=== PATIENT | male | born 1980 | race Caucasian/White ===

== ENCOUNTER 2020-01-10 07:11 | Day surgery (SDC) | payer BC ==
[~2020-01-10] VITALS: Ht 180.3 cm; Wt 86.2 kg
--- NOTE | ~2020-01-10 | OP ---
PATIENT NAME: OPAL DOUGLAS MEDICAL RECORD: [id number] :82 LOCATION:D.OPS ADMISSION DATE: SURGEON: FABRIZIO RAMIREZ MD DATE OF OPERATION: 01/10/2020 PREOPERATIVE DIAGNOSIS: Medial meniscus tear of the left knee. POSTOPERATIVE DIAGNOSIS: Medial meniscus tear of the left knee. PROCEDURE: Arthroscopic partial medial meniscectomy. SURGEON: Fabrizio Ramirez MD ANESTHESIA: General. INTRAOPERATIVE COMPLICATIONS: None. SUMMARY OF PATHOLOGIC FINDINGS: The patient had a complex tear of the posterior horn of the medial meniscus consistent with the preoperative MRIs and examination. OPERATIVE SUMMARY IN DETAIL: After obtaining the appropriate preoperative orthopedic surgery consent as well as anesthetic consultation, evaluation and clearance, the patient was brought to the operating room and placed on the operating table in supine position. After adequate general laryngeal mask was administered, tourniquet was placed on the proximal aspect of left lower extremity. Left lower extremity was then prepped and draped in routine sterile fashion. The leg was elevated and exsanguinated, tourniquet inflated to 250 mmHg. At this point, appropriate timeout was taken and agreed upon by all given the patient's unique identifiers. Having completed this, the inferolateral portal was created through which the knee was insufflated followed by superomedial and inferomedial portal. Diagnostic arthroscopy did show the patient to have relatively pristine chondral surfaces with only a very small chondral fissuring in the posterior aspect of the medial tibial plateau consistent with injury from a torn meniscus. The meniscus was then taken back very gently with the arthroscopic resector to stable meniscal elements. All portions of complex tear were taken down. Having completed this, the knee was insufflated with 30 cc of 0.25% Marcaine with epinephrine and 80 mg of Depo-Medrol. Arthroscopy portals were closed in routine interrupted fashion using 4-0 Prolene. Sterile dressings were applied. The patient was awakened, taken to the recovery room in stable condition. All final needle and sponge counts were correct. TRANSINT:[id number] Voice Confirmation ID: [id number] DOCUMENT ID: [id number] FABRIZIO RAMIREZ MD CC: [id number] DICTATION DATE: 01/10/20 1054 HEAVY LIFT RIGGER: 01/10/20 1551 DEP [facility] [place] 01/10/20 [facility] [address] [place] [address]
[~2020-01-10 07:11] MED LIST: ALLEGRA-D PO
[2020-01-10] MEDS ORDERED: ATIVAN1 MG PO (07:47)
[2020-01-10 08:03] VITALS: BP 114/75; Ht 180.3 cm; Wt 86.2 kg
[2020-01-10] MEDS ORDERED: HYDROCODON-ACE1 EA10 PO (10:51)
--- NOTE | 2020-01-10 13:45 | NUR ---
1235 ALL DC INSTRUCTIONS GIVEN. TAKEN OUT VIA WC AND ASSISTED TO CAR WITH . ADVISED TO CALL OR COME BACK IF ANY PROBLEMS.
== END 2020-01-10 12:35 | disposition home or self-care (01) ==
LOC: D.OPS 07:11 → D.PAN 09:15 → D.OPS 09:45
PROVIDERS: ATTEND Orthopaedic Surgery
DX: S83.242A Other tear of medial meniscus, current injury, left knee, initial encounter (principal); X58.XXXA Exposure to other specified factors, initial encounter; J45.909 Unspecified asthma, uncomplicated; M25.562 Pain in left knee